=== PATIENT | male | born 1940 | race Caucasian/White ===

== ENCOUNTER 2025-11-06 12:51 | Emergency (ER) | payer MEDICARE ==
[~2025-11-06] VITALS: Ht 170.2 cm; Wt 84.4 kg
--- NOTE | 2025-11-06 12:57 | ERN ---
ED Note History of Present Illness Stated Complaint: FALL Chief Complaint: Mechanical Fall Time Seen by MD: 12:53 Dictation: PATIENT IS AN 85-YEAR-OLD MALE COMING IN FROM A [facility] VIA EMS. HE IS UNABLE TO PROVIDE ANY HISTORY OTHER THAN HE FELL. EMS STATES THAT THE STAFF WENT TO CHECK ON HIM AND HE WAS FOUND DOWN ON THE FLOOR. THEY NOTICED A ABRASION WITH HEMATOMA TO THE RIGHT OCCIPUT. UNKNOWN WHETHER PATIENT HAD LOC YOUR NOT. THERE HAS BEEN NO NAUSEA VOMITING HOWEVER EMS WAS TOLD THAT HE WAS MORE ALTERED THAN NORMAL ON-CALL. DOES HAVE A HISTORY OF DEMENTIA HYPERTENSION. THERE WAS NO NECK PAIN ON EXAM NO PELVIC PAIN NO SHORTENING OR ROTATION OF EITHER LOWER EXTREMITIES THERE NO BLOOD THINNERS NO TRAUMA ALERT CRITERIA. PATIENT'S DAUGHTER AT THE BEDSIDE AND SAID HE IS BASELINE. Allergies: Coded Allergies: Penicillins (Unverified Allergy, Unknown, 11/06/25) Past Medical History RN Note Reviewed/Agreed w/PFSH: Yes Review of System Dictation CONSTITUTIONAL: NEGATIVE EXCEPT FOR HPI HEAD/FACE: NEGATIVE EXCEPT FOR HPI RIGHT OCCIPITAL ABRASION/HEMATOMA EENT: NEGATIVE EXCEPT FOR HPI RESPIRATORY: NEGATIVE EXCEPT FOR HPI GASTROINTESTINAL/ABDOMINAL: NEGATIVE EXCEPT FOR HPI GENITOURINARY: NEGATIVE EXCEPT FOR HPI MUSCULOSKELETAL: NEGATIVE EXCEPT FOR HPI INTEGUMENTARY: NEGATIVE EXCEPT FOR HPI NEUROLOGICAL/PSYCH: NEGATIVE EXCEPT FOR HPI AMS. DEMENTIA HEMATOLOGIC/LYMPHATIC: NEGATIVE EXCEPT FOR HPI ALL SYSTEMS NEGATIVE, EXCEPT NOTED ABOVE. 13 POINT REVIEW OF SYSTEMS ASSESSED AND ALL NEGATIVE EXCEPT FOR ABOVE. Initial Vital Sign VS Vital Signs Date Time Temp Pulse Resp B/P (MAP) Pulse Ox O2 Delivery O2 Flow Rate FiO2 11/06/25 12:53 98.1 64 16 133/76 95 Room Air 11/06/25 13:00 0 21 Physical Exam Dictation VITAL SIGNS REVIEWED GENERAL APPEARANCE: ALERT, ORIENTED X 3, NO ACUTE DISTRESS, WELL DEVELOPED, NOURISHED. HEAD AND FACE: RIGHT OCCIPITAL ABRASION WITH HEMATOMA. NO RHOADES OR RACCOON SIGN EYES: PERRL, PINK CONJUNCTIVAS, EYELID NO TRAUMA, ANTERIOR CHAMBER WITH ARCUS SENILIS. EARS: PINNAS INTACT AND NO SIGNS OF TRAUMA OR ERYTHEMA EAR CANALS CLEAR AND NO DISCHARGE TM NO ERYTHEMA NO HEMOTYMPANUM NOSE: NO DISCHARGE, NO BLEEDING. OROPHARYNX: MOUTH NORMAL, TONGUE PINK, PHARYNX CLEAR,NO ERYTHEMA, TONSILS NO EXUDATES, NO ABSCESSES NOTED, MUCOUS MEMBRANE MOIST NECK: SUPPLE, NON-TENDER, NO THYROMEGALY, NO MASSES, NO JVD, NO BRUITS BREAST:DEFERRED CHEST:NO TENDERNESS, NO CREPITUS, NO PARADOXICAL MOVEMENT, NO RETRACTIONS LUNGS:CLEAR, WELL-VENTILATED, SYMMETRIC, NO RALES, NO WHEEZING, NO RHONCHI, NO STRIDOR, GOOD BREATH SOUNDS BILATERALLY HEART: REGULAR RATE, REGULAR RHYTHM, NO MURMUR, NO GALLOPS VASCULAR: NO PERIPHERAL EDEMA, ABDOMEN: SOFT, POSITIVE BOWEL SOUNDS, NONDISTENDED, NO GUARDING, NONTENDER, NO REBOUND, NO MASSES NO HEPATOMEGALY, NO SPLENOMEGALY, NO SCOTT'S SIGN, NO HERNIAS. RECTAL: DEFERRED GENITAL: DEFERRED NEUROLOGICAL: NORMAL SPEECH, MOTOR FUNCTION INTACT, SENSORY FUNCTION INTACT ALERT AND ORIENTED TIMES TWO. PER HIS DAUGHTER. MUSCULOSKELETAL: NECK NONTENDER, FULL RANGE OF MOTION, BACK NONTENDER, FULL RANGE OF MOTION, NO MIDLINE SPINE PAIN NO CERVICAL SPINE PAIN. EXTREMITIES: NONTENDER, FULL RANGE OF MOTION SKIN: COLOR PINK, DRY, NO TURGOR, NO RASH, NO LACERATIONS, NO ABRASIONS, NO CONTUSIONS. LYMPHATIC: DEFERRED Results (Laboratory/Radiology) Laboratory/Radiology Laboratory Tests Test 11/06/25 13:01 White Blood Count 8.3 K/uL (4.8-10.8) Red Blood Count 4.17 MIL/uL (4.50-6.20) L Hemoglobin 11.1 g/dL (14.0-18.0) L Hematocrit 35.6 % (42-54) L Mean Corpuscular Volume 85.4 fL (79-99) Mean Corpuscular Hemoglobin 26.6 pg (27.0-33.0) L Mean Corpuscular Hemoglobin Concent 31.2 g/dL (32.0-36.0) L Red Cell Distribution Width 15.9 % (11.0-15.5) H Platelet Count 436 K/uL (130-400) H Mean Platelet Volume 9.8 fL (7.5-10.5) Immature Granulocyte % (Auto) 0.6 % (0-1) Neutrophils (%) (Auto) 74.5 % (40.0-77.0) Lymphocytes (%) (Auto) 9.4 % (21.0-51.0) L Monocytes (%) (Auto) 11.3 % (3.0-13.0) Eosinophils (%) (Auto) 3.6 % (0.0-8.0) Basophils (%) (Auto) 0.6 % (0.0-5.0) Neutrophils # (Auto) 6.2 K/uL (1.8-7.7) Lymphocytes # (Auto) 0.8 K/uL (1.0-4.8) L Monocytes # (Auto) 0.9 K/uL (0.1-1.0) Eosinophils # (Auto) 0.30 K/uL (0.00-0.70) Basophils # (Auto) 0.05 K/uL (0.00-0.20) Absolute Immature Granulocyte (auto 0.05 K/uL (0-1) Nucleated Red Blood Cells 0.0 % (0.0-0.19) White Cell Morphology Comment See comments Sodium Level 138 mmol/L (136-145) Potassium Level 4.3 mmol/L (3.5-5.1) Chloride Level 103 mmol/L (101-111) Carbon Dioxide Level 26 mmol/L (21-32) Blood Urea Nitrogen 10 mg/dL (7-18) Creatinine 0.8 mg/dL (0.5-1.3) Glomerular Filtration Rate Calc 86 mL/min (>90) Random Glucose 104 mg/dL (70-105) Total Calcium 8.9 mg/dL (8.5-10.1) Magnesium Level 2.00 mg/dL (1.80-2.40) Troponin I High Sensitivity 16 ng/L (4-75) REASON: OCCIPITAL HEMATOMA STATUS POST SAME LEVEL FALL. ORDERING PHYSICIAN: BANG GRACE PROCEDURE: HEAD WO - CT HEAD/BRAIN W/O CONTRAST EXAM: CT Head Without IV contrast. CLINICAL HISTORY: OCCIPITAL HEMATOMA STATUS POST SAME LEVEL FALL. TECHNIQUE: Axial computed tomography images of the head/brain without intravenous contrast. COMPARISON: None provided. FINDINGS: BRAIN: No acute bleed or infarct. Diffuse chronic ischemic and atrophic changes. VENTRICLES: No hydrocephalus. ORBITS: The orbits are unremarkable. SINUSES AND MASTOIDS: The paranasal sinuses and mastoid air cells are clear. BONES: No fracture. SOFT TISSUES: Unremarkable. IMPRESSION: No acute bleed or infarct. Diffuse chronic ischemic and atrophic changes. /[place] 1432/CHEST X-RAY NEGATIVE Labs Reviewed?: Yes EKG Comment: 1312/EKG SINUS BRADYCARDIA/HEART RATE 58/AXIS NORMAL/NO ECTOPY ED Course ED Course Orders Procedure Category Date Status Time Ct Head/Brain W/O CT 11/06/25 Resulted Contrast 12:53 Cbc With Differential LAB 11/06/25 Complete 12:53 Chest 1vw RAD 11/06/25 Resulted 12:53 12 Lead Ekg Tracing- EKG 11/06/25 Complete Technical 12:53 Magnesium LAB 11/06/25 Complete 12:53 Troponin I High LAB 11/06/25 Complete Sensitivity 12:53 Basic Metabolic Panel LAB 11/06/25 Complete 12:53 Urinalysis Profile LAB 11/06/25 Logged 12:53 Vital Signs Date Time Temp Pulse Resp B/P (MAP) Pulse Ox O2 Delivery O2 Flow Rate FiO2 11/06/25 13:00 98.1 64 16 133/76 95 Room Air* 0 21 11/06/25 12:53 98.1 64 16 133/76 95 Room Air 1545/SPOKE WITH PATIENT IN HIS DAUGHTER AT LENGTH. HE STATES IT CHAIR. PATIENT'S DAUGHTER STATES PER NEURO BEHAVIOR. DISCHARGED HEART Score Response (Comments) Value History: Low suspicion (0) 0 Age: > 65yrs (+2) 2 Risk Factors: 1-2 risk factors (+1) 1 Initial Troponin: Normal limit (0) 0 Total 3 Medical Decision Making MDM MDM: DIFFERENTIAL DIAGNOSIS: ACS/AMI/HEAD INJURY/BLEED/ELECTROLYTE IMBALANCE/DEHYDRATION RATIONALE: TESTS CONSIDERED AND ORDERED SECONDARY TO SHARED DECISION MAKING INCLUDE: LABS/EKG/RADIOLOGY PREVIOUS OUTSIDE RECORDS REVIEWED: OLD ER VISITS. RISK OF COMPLICATION AND/OR MORBIDITY OR MORTALITY OF PATIENT MANAGEMENT: NONE MEDICATIONS-PER MEDICATION RECONCILIATION NEED FOR HOSPITALIZATION: PATIENT DOES NOT MEET CRITERIA FOR HOSPITALIZATION. NONE NEED FOR EMERGENCY MAJOR/MINOR SURGERY: NO THERE ARE NO SOCIAL CONCERNS WITH THIS PATIENT. PRESCRIPTION DRUG MANAGEMENT NONE PRESCRIPTIONS WILL INCLUDE SYMPTOMATIC CARE PATIENT'S PRIOR EXTERNAL MEDICAL RECORDS FROM OTHER ER VISITS WERE REVIEWED BY ME INDICATED. PRIOR TESTING AND RESULTS FROM PREVIOUS VISITS WERE REVIEWED. PRIOR TESTS WERE TAKEN INTO ACCOUNT WITH MEDICAL DECISION MAKING AND RESOURCE UTILIZATION, INDEPENDENT HISTORIAN/HISTORIANS WERE USED TO OBTAIN COMPLETE MEDICAL HISTORY. I INDEPENDENTLY INTERPRETED THE TEST THAT WERE PERFORMED, RESULTS WERE REVIEWED BY ME AND CONSIDERED FINDINGS ON RADIOLOGY IF ORDERED. MEDICAL MANAGEMENT AND EXAMINATION INTERPRETATION DISCUSSIONS WERE HAD BY ME WITH OTHER QUALIFIED HEALTHCARE PROFESSIONALS INDICATED FOR THE PATIENT'S CARE. DX & DISP Disposition: Discharge Departure Impression: Primary Impression: Contusion of occipital region of scalp Additional Impressions: Closed head injury, Fall, Chronic anemia Condition: Stable Additional Instructions: FOLLOW-UP WITH PRIMARY CARE PROVIDER IN 1 TO 2 DAYS. TAKE MEDICATIONS DIRECTED HERE IN THE EMERGENCY ROOM. OKAY TO CONTINUE HOME MEDICATIONS UNLESS OTHERWISE DISCUSSED DURING YOUR VISIT IN THE EMERGENCY ROOM TODAY. RETURN TO YOUR NEAREST EMERGENCY ROOM IF SYMPTOMS WORSEN OR IF THERE IS NO IMPROVEMENT. CALL 911 IF YOU NEED IMMEDIATE ASSISTANCE. TAKE TYLENOL OR MOTRIN [id number] NEEDED AND IF NO CONTRAINDICATIONS ARE PRESENT. INCREASE ORAL HYDRATION. A WOUND CULTURE OR URINE CULTURE WAS ORDERED HERE IN THE EMERGENCY ROOM DEPARTMENT PLEASE FOLLOW-UP WITH PRIMARY CARE PROVIDER AND ADVISE THEM TO GET REPEAT PORTS FROM OUR FACILITY. IF YOU HAD ANY PARVIZ WRAP/SPLINTS THAT WERE APPLIED HERE, PLEASE DO NOT REMOVE THEM UNTIL YOU SEE YOUR PRIMARY CARE OR SPECIALTY. DIET AND ACTIVITY TOLERATED SEE YOUR PRIMARY CARE DOCTOR FOR FOLLOW UP. RETURN TO THE EMERGENCY ROOM IMMEDIATELY IF ANY CHANGES FROM HEAD INJURY INFORMATION SHEET Time of Disposition: 15:45 I have reviewed the case, and I agree with, Diagnosis and Plan BANG GRACE Nov 06, 2025 12:57
[2025-11-06 13:14] LABS: IMMATURE GRANULOCYTE ABSOLUTE 0.05 K/uL (0-1); NUCLEATED RED BLOOD CELLS 0.0 % (0.0-0.19); PLATELET COUNT (AUTO) 436 K/uL (130-400); RED BLOOD CELL COUNT(AUTO) 4.17 MIL/uL (4.50-6.20); RED CELL DISTRIBUTION WIDTH 15.9 % (11.0-15.5); WHITE BLOOD COUNT (AUTO) 8.3 K/uL (4.8-10.8)
--- NOTE | 2025-11-06 13:25 | EKG ---
[facility] Test Date: 2025-11-06 Test Time: 13:12:52 Pat Name: ERICK LEON Department: ED Room: Gender: Key Account Coordinator: [id number] : 1940 Requested By: BANG GRACE Order Number: [id number] Reading MD: Abdon Underwood Measurements Intervals Mandan Rate: 58 P: 35 IN: 176 QRS: 10 QRSD: 92 T: 29 QT: 457 QTc: 450 Interpretive Statements Sinus rhythm No previous ECG available for comparison Electronically Signed On 11-07-2025 09:33:20 RN CHRONIC by Abdon Underwood Please click the below link to view image of tracing.
[2025-11-06 13:50] LABS: CREATININE 0.8 mg/dL (0.5-1.3); GLOMERULAR FILTR. RATE CALC 86.0 mL/min (>90); GLUCOSE,RANDOM 104.0 mg/dL (70-105); SODIUM SERUM 138.0 mmol/L (136-145); UREA NITROGEN, BLOOD 10.0 mg/dL (7-18)
--- NOTE | 2025-11-06 14:06 | HMCIMG ---
EXAM: CT Head Without IV contrast. CLINICAL HISTORY: OCCIPITAL HEMATOMA STATUS POST SAME LEVEL FALL. TECHNIQUE: Axial computed tomography images of the head/brain without intravenous contrast. COMPARISON: None provided. FINDINGS: BRAIN: No acute bleed or infarct. Diffuse chronic ischemic and atrophic changes. VENTRICLES: No hydrocephalus. ORBITS: The orbits are unremarkable. SINUSES AND MASTOIDS: The paranasal sinuses and mastoid air cells are clear. BONES: No fracture. SOFT TISSUES: Unremarkable. IMPRESSION: No acute bleed or infarct. Diffuse chronic ischemic and atrophic changes. /[place]
--- NOTE | 2025-11-06 14:28 | HMCIMG ---
EXAM: CR Chest, 1 View. CLINICAL HISTORY: CHEST PAIN COMPARISON: None provided. FINDINGS: LUNGS: Basilar atelectasis PLEURAL SPACES: No evidence of pleural effusion or pneumothorax. MEDIASTINUM: Cardiac silhouette prominent BONES: No acute osseous abnormality. IMPRESSION: 1. Cardiac silhouette prominent 2. Basilar atelectasis /[place]
[2025-11-06 15:49] VITALS: BP 135/72; PULSE 66; RESP 16; TEMP 98.1; O2SAT 95
[2025-11-14] MEDS ORDERED: DILT120T PO (18:22)
[2025-11-14] MEDS ORDERED: MULT-1367 PO (18:22)
[2025-11-14] MEDS ORDERED: SERT-440 PO (18:22)
[2025-11-14] MEDS ORDERED: BETA1TAB20 PO (18:22)
[2025-11-14] MEDS ORDERED: CIPR-514 PO (18:22)
[2025-11-14] MEDS ORDERED: HYDR25TA67 PO (18:22)
[2025-11-14] MEDS ORDERED: FISH1CAP20 PO (18:22)
[2025-11-14] MEDS ORDERED: DOCU-403 PO (18:22)
[2025-11-14] MEDS ORDERED: ATEN25TA PO (18:22)
[2025-11-14] MEDS ORDERED: FLUT16H NS (18:22)
[2025-11-14] MEDS ORDERED: LOSA100T59 PO (18:22)
[2025-11-14] MEDS ORDERED: POLY17PO4 PO (18:22)
[2025-11-14] MEDS ORDERED: MEMA10TA21 PO (18:22)
[2025-11-14] MEDS ORDERED: VIBE75TA PO (18:22)
[2025-11-14] MEDS ORDERED: FINA5TAB41 PO (18:22)
[2025-11-14] MEDS ORDERED: LOVA20TA3 PO (18:22)
[2025-11-14] MEDS ORDERED: CHOL2000 PO (18:22)
== END 2025-11-06 15:51 | disposition home or self-care (01) ==
LOC: EDH 12:51
DX: S00.03XA Contusion of scalp, initial encounter (principal); D64.9 Anemia, unspecified; Z88.0 Allergy status to penicillin; W18.39XA Other fall on same level, initial encounter; Y93.89 Activity, other specified; Y92.89 Other specified places as the place of occurrence of the external cause; Y99.8 Other external cause status
CPT/HCPCS: 36415; 70450; 71045; 80048; 83735; 84484; 85025; 93005; 99285

== ENCOUNTER 2025-11-13 06:36 | Emergency (ER) | payer MEDICARE ==
[~2025-11-13] VITALS: Ht 170.2 cm; Wt 83.9 kg
--- NOTE | 2025-11-13 06:51 | ERN ---
ED Note History of Present Illness Stated Complaint: FALL Chief Complaint: Mechanical Fall Time Seen by MD: 06:42 Dictation: Patient is a 85-year-old male with a past medical history of hypertension, depression, immunodeficiency?, malignant neoplasm of colon, rectum. Patient was brought from half-way by EMS after a sustained fall inside of his room, as per EMS the fall was unwitnessed. Also EMS reports unequal pupils size, left 3 mm, right 2 mm. During my evaluation the patient is unable to give full description of the episode, seems to be confused. There is no history of dementia as per report. Allergies: Coded Allergies: Penicillins (Unverified Allergy, Unknown, 11/06/25) Home Meds Reported Medications Vibegron (Gemtesa) 75 Mg Tablet, 1 TAB PO DAILY for 30 Days, #30 TAB 0 Refills 11/14/25 Cholecalciferol (Vitamin D3) (Vitamin D3) 50 Mcg (2000 Unit) Capsule, 1 CAP PO QMOWEFR for 30 Days, #30 CAP 0 Refills 11/14/25 Docusate Sodium (Stool Softener) 100 Mg Capsule, 1 CAP PO HS for 28 Days, #28 CAP 0 Refills 11/14/25 Sertraline HCl (Sertraline HCl) 100 Mg Tablet, 1 TAB PO DAILY for 30 Days, #30 TAB 0 Refills 11/14/25 Vit A/Vit C/Vit E/Zinc/Copper (Preservision Areds Tablet) 2,148-113 Tablet, 1 TAB PO BID for 30 Days, #60 TAB 0 Refills 11/14/25 Multivitamin (Multivitamin) 1 Each Tablet, 1 TAB PO DAILY for 30 Days, #30 TAB 0 Refills 11/14/25 Polyethylene Glycol 3350 (Miralax) 17 Gram Powd.pack, 1 PACKET PO DAILY for constipation, #30 PACKET 0 Refills dissolve in water 11/14/25 Memantine HCl (Memantine HCl) 10 Mg Tablet, 1 TAB PO BID for 30 Days, #60 TAB 0 Refills 11/14/25 Lovastatin (Lovastatin) 20 Mg Tablet, 1 TAB PO HS for 30 Days, #30 TAB 0 Refills 11/14/25 Losartan Potassium (Losartan Potassium) 100 Mg Tablet, 1 TAB PO DAILY for 30 Days, #30 TAB 0 Refills 11/14/25 Hydralazine HCl (Hydralazine HCl) 25 Mg Tablet, 10 MG PO BID, TAB 11/14/25 Fluticasone Propionate (Fluticasone Propionate) 50 Mcg/Actuation [place].susp, 2 SPRAY NS DAILY, #16 GM 0 Refills 11/14/25 [place]-3 Fatty Acids/Fish Oil (Fish Oil 1000 mg/Cap) 300 Mg-1,000 Mg Capsule, 1000 MG PO HS, CAP 11/14/25 Finasteride (Finasteride) 5 Mg Tablet, 1 TAB PO DAILY for 30 Days, #30 TAB 0 Refills 11/14/25 Diltiazem HCl (Diltiazem HCl) 120 Mg Tablet, 1 TAB PO DAILY for 30 Days, #60 TAB 0 Refills 11/14/25 Ciprofloxacin HCl (Ciprofloxacin HCl) 500 Mg Tablet, 1 TAB PO BID for 10 Days, #20 TAB 0 Refills 11/14/25 Atenolol (Atenolol) 25 Mg Tablet, 1 TAB PO DAILY for 30 Days, #30 TAB 0 Refills 11/14/25 Past Medical History Past Medical History: Dementia, Depression, High Cholesterol, Hypertension Additional Past Medical Hx: ENLARGED PROSTATE Surgical History: Other Surgical History Other: LT HAND SURGERY RN Note Reviewed/Agreed w/PFSH: Yes Review of System Dictation NEGATIVE EXCEPT PER HPI Constitutional: Negative for fever,chills, and weight loss Eyes: Negative for injury, pain,redness, and discharge ENT: Negative for injury,pain or swelling Cardiovascular: denies chest pain, palpitations, and edema Respiratory: Negative for shortness of breath, cough, and wheezing, Abdomen/GI: Negative for abdominal pain, nausea, vomiting, diarrhea, and constipation Back: Negative for injury and pain : Negative for injury, bleeding and discharge MS/Extremity: Patient is a complaining of knee injury Skin: Negative for rash, and discoloration Neuro: Negative for headache, weakness, numbness, tingling, and seizure Psych: Negative for suicide ideation, homicidal ideation, and hallucinations Initial Vital Sign VS Vital Signs Date Time Temp Pulse Resp B/P (MAP) Pulse Ox O2 Delivery O2 Flow Rate FiO2 11/13/25 06:39 98.4 88 18 178/86 98 Nasal Cannula 11/13/25 09:30 0 21 Physical Exam Dictation General: awake, alert, NAD, confused Head/Face: Normocephalic, atraumatic Eyes: PERRL, EOMI, vision at baseline ENT: oral cavity clear, TMs clear, no signs of infection Neck: Trachea midline, supple, no nuchal rigidity Cardiovascular: RRR, normal S1/S2, No MRGs, no JVD Respiratory: CTAB, no respiratory distress, No rales or wheezes Abdomen: Soft , no tender Skin: Warm, dry, normal turgor, no rash MS/Extremity: Pulses equal, no cyanosis, neurovascular intact, FROM Neuro: COAx4, GCS 15, strength 5/5, CN 2-12 intact, normal cerebellar exam, normal gait, Psych: Normal behavior, mood, and affect normal Results (Laboratory/Radiology) Laboratory/Radiology Laboratory Tests Test 11/13/25 06:57 11/13/25 07:40 White Blood Count 7.8 K/uL (4.8-10.8) Red Blood Count 4.60 MIL/uL (4.50-6.20) Hemoglobin 12.5 g/dL (14.0-18.0) L Hematocrit 38.2 % (42-54) L Mean Corpuscular Volume 83.0 fL (79-99) Mean Corpuscular Hemoglobin 27.2 pg (27.0-33.0) Mean Corpuscular Hemoglobin Concent 32.7 g/dL (32.0-36.0) Red Cell Distribution Width 15.8 % (11.0-15.5) H Platelet Count 405 K/uL (130-400) H Mean Platelet Volume 10.0 fL (7.5-10.5) Immature Granulocyte % (Auto) 0.5 % (0-1) Neutrophils (%) (Auto) 62.2 % (40.0-77.0) Lymphocytes (%) (Auto) 14.2 % (21.0-51.0) L Monocytes (%) (Auto) 16.5 % (3.0-13.0) H Eosinophils (%) (Auto) 5.8 % (0.0-8.0) Basophils (%) (Auto) 0.8 % (0.0-5.0) Neutrophils # (Auto) 4.9 K/uL (1.8-7.7) Lymphocytes # (Auto) 1.1 K/uL (1.0-4.8) Monocytes # (Auto) 1.3 K/uL (0.1-1.0) H Eosinophils # (Auto) 0.45 K/uL (0.00-0.70) Basophils # (Auto) 0.06 K/uL (0.00-0.20) Absolute Immature Granulocyte (auto 0.04 K/uL (0-1) Nucleated Red Blood Cells 0.0 % (0.0-0.19) Prothrombin Time 10.4 SEC (9.6-11.6) Prothromb Time International Ratio 0.98 (0.85-1.15) Activated Partial Thromboplast Time 24.9 SEC (26.3-35.5) L Sodium Level 138 mmol/L (136-145) Potassium Level 4.2 mmol/L (3.5-5.1) Chloride Level 105 mmol/L (101-111) Carbon Dioxide Level 27 mmol/L (21-32) Blood Urea Nitrogen 10 mg/dL (7-18) Creatinine 0.8 mg/dL (0.5-1.3) Glomerular Filtration Rate Calc 86 mL/min (>90) Random Glucose 105 mg/dL (70-105) Total Calcium 8.9 mg/dL (8.5-10.1) Troponin I High Sensitivity 18 ng/L (4-75) Labs Reviewed?: Yes CT Scan Comment: REASON: trauma ORDERING PHYSICIAN: GAETANO MÉNDEZ MD PROCEDURE: C SPIN WO - CT CERVICAL SPINE W/O CONTRAST EXAM: CT Cervical Spine Without IV contrast. CLINICAL HISTORY: trauma TECHNIQUE: Axial computed tomography images of the cervical spine without intravenous contrast. Sagittal and coronal reformatted images were generated. COMPARISON: None provided. FINDINGS: ALIGNMENT: Bony alignment is anatomic. DEGENERATIVE CHANGES: Subtle thickening and hypertrophy of the tectorial membrane, and erosive changes involving the coronoid process of the C2 vertebra, may represent rheumatoid arthritis. Loss of cervical lordosis is probably secondary to muscular spasm. Degenerative reduction in disc space at C3-C4, C4-C5, C5-C6, and C6-C7 with anterior osteophyte and multilevel uncinate process hypertrophy. Mild retrolisthesis of C5 over C6. Multilevel uncinate process hypertrophy and facet arthropathy. Moderate to severe narrowing of the neural foramina at C2-C3, C3-C4, C4-C5, C5-C6, and C6-C7 levels. Disc osteophyte complex bulge at the C5-C6 level with moderate spinal canal stenosis. SOFT TISSUES: The prevertebral soft tissues are within normal limits. BONES: No acute fracture. Mild osteopenia in visualized bones. Atherosclerotic calcification of the aortic arch. A lobulated 2 cm polyp along the floor of the left maxillary sinus. IMPRESSION: No evidence of acute fracture. Normal vertebral body height. Mild osteopenia. Loss of cervical lordosis. Subtle thickening and hypertrophy of the tectorial membrane, and erosive changes involving the coronoid process of the C2 vertebra, may represent rheumatoid arthritis. Multilevel severe degenerative changes in the cervical spine. Mild retrolisthesis of C5 over C6 and moderate to severe degenerative changes in the cervical spine as described. /[place] DICTATED BY: CECILIA HERNANDEZ Jr., MD DATE: 11/13/25946 ELECTRONICALLY SIGNED BY: CECILIA HERNANDEZ Jr., MD DATE: 11/13/25946 EXAM: CT Head Without IV contrast. CLINICAL HISTORY: trauma TECHNIQUE: Axial computed tomography images of the head/brain without intravenous contrast. COMPARISON: None provided. FINDINGS: BRAIN: No evidence of acute hemorrhage. No mass lesion. No CT evidence for acute territorial infarct. No midline shift or extra-axial collections. Moderate age-related volume loss is demonstrated in the form of prominent ventricles, sulci, and cisterns. Mild bilateral periventricular hypodensities are demonstrated, consistent with chronic small vessel ischemic changes. Diffuse atherosclerotic calcification of the bilateral vertebral arteries, left more than right and the cavernous portion of the internal carotid arteries. Calcified lesions in the right sylvian fissure. VENTRICLES: No hydrocephalus. ORBITS: The orbits are unremarkable. SINUSES AND MASTOIDS: The paranasal sinuses and mastoid air cells are clear. BONES: No fracture. SOFT TISSUES: Unremarkable. IMPRESSION: No evidence of calvarial fracture or extra-axial collection. Age-related degenerative change. Changes of chronic microvascular ischemic disease.Calcified lesions in the right sylvian fissure. No acute intracranial abnormality. /[place] DICTATED BY: CECILIA HERNANDEZ Jr., MD DATE: 11/13/25927 ELECTRONICALLY SIGNED BY: DATE: EXAM: CT Head Without IV contrast. CLINICAL HISTORY: trauma TECHNIQUE: Axial computed tomography images of the head/brain without intravenous contrast. COMPARISON: None provided. FINDINGS: BRAIN: No evidence of acute hemorrhage. No mass lesion. No CT evidence for acute territorial infarct. No midline shift or extra-axial collections. Moderate age-related volume loss is demonstrated in the form of prominent ventricles, sulci, and cisterns. Mild bilateral periventricular hypodensities are demonstrated, consistent with chronic small vessel ischemic changes. Diffuse atherosclerotic calcification of the bilateral vertebral arteries, left more than right and the cavernous portion of the internal carotid arteries. Calcified lesions in the right sylvian fissure. VENTRICLES: No hydrocephalus. ORBITS: The orbits are unremarkable. SINUSES AND MASTOIDS: The paranasal sinuses and mastoid air cells are clear. BONES: No fracture. SOFT TISSUES: Unremarkable. IMPRESSION: No evidence of calvarial fracture or extra-axial collection. Age-related degenerative change. Changes of chronic microvascular ischemic disease.Calcified lesions in the right sylvian fissure. No acute intracranial abnormality. /[place] DICTATED BY: CECILIA HERNANDEZ Jr., MD DATE: 11/13/25920 ELECTRONICALLY SIGNED BY: CECILIA HERNANDEZ Jr., MD DATE: 11/13/25920 ED Course ED Course Orders Procedure Category Date Status Time Cbc With Differential LAB 11/13/25 Complete 06:41 Basic Metabolic Panel LAB 11/13/25 Complete 06:41 Troponin I High LAB 11/13/25 Complete Sensitivity 06:41 Pt And Ptt LAB 11/13/25 Complete 06:41 Chest 1vw RAD 11/13/25 Resulted 06:41 12 Lead Ekg Tracing- EKG 11/13/25 Resulted Technical 06:41 Ct Head/Brain W/O CT 11/13/25 Resulted Contrast 06:42 Ct Cervical Spine W/O CT 11/13/25 Resulted Contrast 06:42 Hip Bilat 2vw RAD 11/13/25 Resulted 06:43 Knee 2vw Bilateral RAD 11/13/25 Resulted 06:43 Losartan 100 Mg PHA 11/13/25 Complete Tablet (Cozaar 100mg 09:30 Current Medications Medications (Trade) Dose Ordered Sig/Ana Route PRN Reason Start Time Stop Time Status Last Admin Dose Admin Losartan Potassium (CozAAR 100MG TAB) 100 mg ONCE ONCE PO 11/13/25 09:30 11/13/25 09:31 DC 11/13/25 09:32 Vital Signs Date Time Temp Pulse Resp B/P (MAP) Pulse Ox O2 Delivery O2 Flow Rate FiO2 11/13/25 09:30 97.0 95 17 180/82 96 Room Air* 0 21 11/13/25 06:39 98.4 88 18 178/86 98 Nasal Cannula Medical Decision Making [facility] Assumed care of the patient at 7:00 a.m.- Differential diagnosis: Closed head injury, intracranial event, depressed skull fractures, whiplash injury to the neck, herniated discs, cervical vertebral fracture This is an 85-year-old male who sustained a fall at unknown time presenting from [facility]. Apparently the staff found him on the floor but he does not recall how he got there no history of any blood thinners no loss of consciousness. Temperature 98.5 pulse 88 respirations 18 blood pressure 178/86 with a pulse oximetry of 98% on room air His chronic medical problems include dementia, depression, hypertension, hypercholesterolemia and BPH Labs reviewed CBC showed a white count of 7.8 hemoglobin 12.5 platelets 405. 7:50 a.m. x-rays of the knee hips and pelvis and chest x-ray are unremarkable for any acute fractures. 9:[address] scan of the head and C-spine were also negative for any fractures hemorrhage new events. 9:00 a.m.-I updated the patient and his daughter who was at bedside on all the labs that were unrevealing and also the imaging studies Recommended admission to the hospital for observation pain management and for any delayed complications. Patient's daughter insisted that he usually does not have any pain and does not need any pain medications other than Tylenol and that they would prefer to be discharged back to half-way as yes spent a lot of time in the hospitals since his colon cancer resection. Patient will be transferred back to the half-way. Rationale: Tests considered and ordered secondary to shared decision making include: Labs and imaging studies Previous outside records reviewed: Old ER visits. Risk of complication and/or morbidity or mortality of patient management: None Medications-Per medication reconciliation Need for hospitalization: Patient does not meet criteria for hospitalization. Need for emergency major/minor surgery: No There are no social concerns with this patient. Prescription drug management Prescriptions will include symptomatic care Patient's prior external medical records from other ER visits were reviewed by me as indicated. Prior testing and results from previous visits were reviewed. Prior tests were taken into account with medical decision making and resource utilization, independent historian/historians were used to obtain complete medical history. I independently interpreted the test that were performed, results were reviewed by me and considered findings on radiology if ordered. Medical management and examination interpretation discussions were had by me with other qualified healthcare professionals as indicated for the patient's care. Problem List Problem List: (1) Adult failure to thrive (2) Fall (3) Contusion of occipital region of scalp (4) Chronic anemia (5) Closed head injury DX & DISP Disposition: Discharge Departure Impression: Primary Impression: Fall Additional Impressions: Closed head injury, Contusion of occipital region of scalp, Chronic anemia Condition: Stable Additional Instructions: Patient and the caregiver have been informed of all the diagnostic tests and the imaging conducted during the today's visit to the emergency room and has verbalized understanding of the results I have personally reviewed and interpreted all diagnostic exams performed here in the ER today as well as the vital signs documented by the nursing staff. The patient is now being discharged to half-way and should follow up with the primary care physician or the specialist as directed by the ER staff. Referrals: SELF,REFERRAL (PCP) GAETANO MÉNDEZ MD Nov 13, 2025 06:51 MARY WAGNER MD Nov 13, 2025 08:59
--- NOTE | 2025-11-13 06:52 | EKG ---
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
[2025-11-13 07:07] LABS: IMMATURE GRANULOCYTE ABSOLUTE 0.04 K/uL (0-1); NUCLEATED RED BLOOD CELLS 0.0 % (0.0-0.19); PLATELET COUNT (AUTO) 405 K/uL (130-400); RED BLOOD CELL COUNT(AUTO) 4.60 MIL/uL (4.50-6.20); RED CELL DISTRIBUTION WIDTH 15.8 % (11.0-15.5); WHITE BLOOD COUNT (AUTO) 7.8 K/uL (4.8-10.8)
--- NOTE | 2025-11-13 07:25 | HMCIMG ---
EXAM: CR Chest, single view. CLINICAL HISTORY: History of fall. Trauma. COMPARISON: Prior chest radiograph dated November 06, 2025. FINDINGS: Mildly elevated right hemidiaphragm. The lungs show no infiltrate or other acute findings. No pleural effusion or pneumothorax. The cardiomediastinal silhouette is within normal limits. No acute osseous abnormality. Mild degenerative changes in the bilateral acromioclavicular and glenohumeral joints. IMPRESSION: No acute cardiopulmonary pathology is evident. Compared to the prior study, there is no significant interval change. /[place]
--- NOTE | 2025-11-13 07:27 | HMCIMG ---
EXAM: CR Bilateral knees 4 views. CLINICAL HISTORY: History of fall. Rule out injury or fracture. COMPARISON: None provided. FINDINGS: Bilateral total hip arthroplasty status. No evidence of periprosthetic lucency or hardware failure. Mild bilateral suprapatellar knee joint effusion. No acute fracture or aggressive appearing osseous lesion. The soft tissues are unremarkable. IMPRESSION: No acute osseous abnormality.Bilateral total hip arthroplasty status. No evidence of periprosthetic lucency or hardware failure. Mild bilateral suprapatellar knee joint effusion. /[place]
--- NOTE | 2025-11-13 07:33 | HMCIMG ---
EXAM: CR bilateral hips, 2 views. CLINICAL HISTORY: fall, r/o injury /fracture (Hx) / fall , r/o injury /fracture COMPARISON: None provided. FINDINGS: No acute fracture or aggressively appearing osseous lesion. Mild degenerative changes in the bilateral superolateral hip joints and moderate degenerative changes in the bilateral medial hip joints. The soft tissues are unremarkable. Moderate amount of fecal residue in the large bowel loops. IMPRESSION: No acute osseous abnormality. Mild degenerative changes in the bilateral superolateral and medial hip joint space. /[place]
[2025-11-13 08:01] LABS: CREATININE 0.8 mg/dL (0.5-1.3); GLOMERULAR FILTR. RATE CALC 86.0 mL/min (>90); GLUCOSE,RANDOM 105.0 mg/dL (70-105); SODIUM SERUM 138.0 mmol/L (136-145); UREA NITROGEN, BLOOD 10.0 mg/dL (7-18)
--- NOTE | 2025-11-13 08:21 | HMCIMG ---
EXAM: CT Head Without IV contrast. CLINICAL HISTORY: trauma TECHNIQUE: Axial computed tomography images of the head/brain without intravenous contrast. COMPARISON: None provided. FINDINGS: BRAIN: No evidence of acute hemorrhage. No mass lesion. No CT evidence for acute territorial infarct. No midline shift or extra-axial collections. Moderate age-related volume loss is demonstrated in the form of prominent ventricles, sulci, and cisterns. Mild bilateral periventricular hypodensities are demonstrated, consistent with chronic small vessel ischemic changes. Diffuse atherosclerotic calcification of the bilateral vertebral arteries, left more than right and the cavernous portion of the internal carotid arteries. Calcified lesions in the right sylvian fissure. VENTRICLES: No hydrocephalus. ORBITS: The orbits are unremarkable. SINUSES AND MASTOIDS: The paranasal sinuses and mastoid air cells are clear. BONES: No fracture. SOFT TISSUES: Unremarkable. IMPRESSION: No evidence of calvarial fracture or extra-axial collection. Age-related degenerative change. Changes of chronic microvascular ischemic disease.Calcified lesions in the right sylvian fissure. No acute intracranial abnormality. /[place]
[2025-11-13 08:31] LABS: INR 0.98 (0.85-1.15)
--- NOTE | 2025-11-13 08:49 | HMCIMG ---
EXAM: CT Cervical Spine Without IV contrast. CLINICAL HISTORY: trauma TECHNIQUE: Axial computed tomography images of the cervical spine without intravenous contrast. Sagittal and coronal reformatted images were generated. COMPARISON: None provided. FINDINGS: ALIGNMENT: Bony alignment is anatomic. DEGENERATIVE CHANGES: Subtle thickening and hypertrophy of the tectorial membrane, and erosive changes involving the coronoid process of the C2 vertebra, may represent rheumatoid arthritis. Loss of cervical lordosis is probably secondary to muscular spasm. Degenerative reduction in disc space at C3-C4, C4-C5, C5-C6, and C6-C7 with anterior osteophyte and multilevel uncinate process hypertrophy. Mild retrolisthesis of C5 over C6. Multilevel uncinate process hypertrophy and facet arthropathy. Moderate to severe narrowing of the neural foramina at C2-C3, C3-C4, C4-C5, C5-C6, and C6-C7 levels. Disc osteophyte complex bulge at the C5-C6 level with moderate spinal canal stenosis. SOFT TISSUES: The prevertebral soft tissues are within normal limits. BONES: No acute fracture. Mild osteopenia in visualized bones. Atherosclerotic calcification of the aortic arch. A lobulated 2 cm polyp along the floor of the left maxillary sinus. IMPRESSION: No evidence of acute fracture. Normal vertebral body height. Mild osteopenia. Loss of cervical lordosis. Subtle thickening and hypertrophy of the tectorial membrane, and erosive changes involving the coronoid process of the C2 vertebra, may represent rheumatoid arthritis. Multilevel severe degenerative changes in the cervical spine. Mild retrolisthesis of C5 over C6 and moderate to severe degenerative changes in the cervical spine as described. /[place]
[2025-11-13 09:30] VITALS: BP 180/82; PULSE 95; RESP 17; TEMP 97; O2SAT 96
--- NOTE | 2025-11-13 09:32 | NUR ---
PT'S BP HAS BEEN ELEVATED (SEE TRAUMA FLOWSHEET). HE NORMALLY TAKES LOSARTAN 100 MG IN THE AM, WHICH IS NOW ADMINISTERED PO.
[2025-11-14] MEDS ORDERED: FISH1CAP20 PO (18:22)
[2025-11-14] MEDS ORDERED: DOCU-403 PO (18:22)
[2025-11-14] MEDS ORDERED: MEMA10TA21 PO (18:22)
[2025-11-14] MEDS ORDERED: POLY17PO4 PO (18:22)
[2025-11-14] MEDS ORDERED: LOSA100T59 PO (18:22)
[2025-11-14] MEDS ORDERED: LOVA20TA3 PO (18:22)
[2025-11-14] MEDS ORDERED: ATEN25TA PO (18:22)
[2025-11-14] MEDS ORDERED: [UNRECOGNIZED DRUG - CODE] PO (18:22)
[2025-11-14] MEDS ORDERED: FLUT16H NS (18:22)
[2025-11-14] MEDS ORDERED: MULT-1367 PO (18:22)
[2025-11-14] MEDS ORDERED: DILT120T PO (18:22)
[2025-11-14] MEDS ORDERED: CHOL2000 PO (18:22)
[2025-11-14] MEDS ORDERED: SERT-440 PO (18:22)
[2025-11-14] MEDS ORDERED: BETA1TAB20 PO (18:22)
[2025-11-14] MEDS ORDERED: HYDR25TA67 PO (18:22)
[2025-11-14] MEDS ORDERED: VIBE75TA PO (18:22)
[2025-11-14] MEDS ORDERED: CIPR-514 PO (18:22)
[2025-12-02] MEDS ORDERED: HYDR50TA37 PO (21:42)
[2025-12-02] MEDS ORDERED: VIT1CAPS47 PO (21:42)
== END 2025-11-13 09:47 | disposition home or self-care (01) ==
LOC: EDH 06:36
DX: S00.03XA Contusion of scalp, initial encounter (principal); D64.9 Anemia, unspecified; E78.00 Pure hypercholesterolemia, unspecified; F03.90 Unspecified dementia, unspecified severity, without behavioral disturbance, psychotic disturbance, mood disturbance, and anxiety; F32.A Depression, unspecified; I10 Essential (primary) hypertension; Z88.0 Allergy status to penicillin; Z79.899 Other long term (current) drug therapy; Z96.643 Presence of artificial hip joint, bilateral; Z98.890 Other specified postprocedural states; W18.39XA Other fall on same level, initial encounter; Y93.89 Activity, other specified; Y92.128 Other place in nursing home as the place of occurrence of the external cause; Y99.8 Other external cause status
CPT/HCPCS: 36415; 70450; 71045; 72125; 73521; 73565; 80048; 84484; 85025; 85610; 85730; 93005; 99285; 73560